=== PATIENT | male | born 1970 | race African-American/Black ===

== ENCOUNTER 2018-05-11 19:24 | Emergency (ER) | payer SELFPAY ==
[~2018-05-11] VITALS: Ht 180.3 cm; Wt 69.6 kg
[2018-05-11 19:59] VITALS: Ht 180.3 cm; Wt 69.6 kg
[2018-05-11 21:03] LABS: UA SPECIFIC GRAVITY >=1.030 (1.005-1.035); microscopic required? YES; urine erythrocyte NEGATIVE (NEGATIVE)
[2018-05-11 21:08] LABS: BASOPHIL % 0.2 % (0-2)
[2018-05-11 21:12] LABS: PLATELET COUNT 484 x10^3mcL (130-400); RED CELL DISTRIBUTION WIDTH 14.7 % (11.5-14.5)
[2018-05-11 21:14] LABS: CALCIUM 8.8 mg/dL (8.5-10.1); CARBON DIOXIDE 28.8 mmol/L (21-32); CHLORIDE SERUM 99 mmol/L (98-107); CREATININE SERUM 0.9 mg/dL (0.7-1.3); GFR1 > 60 mL/min; GLUCOSE SERUM 118 mg/dL (74-106); POTASSIUM SERUM 3.2 mmol/L (3.5-5.1); SODIUM SERUM 138 mmol/L (136-145)
[2018-05-11 21:28] LABS: ALBUMIN 2.9 g/dL (3.4-5.0); ALKALINE PHOSPHATASE 252 U/L (46-116); ALT/SGPT 28 U/L (16-63); AST/SGOT 37 U/L (15-37); FREE T4 1.32 ng/dL (0.76-1.46); LIPASE 433 IU/L (73-393); TOTAL PROTEIN, SERUM 7.7 g/dL (6.4-8.2)
[2018-05-11 22:40] VITALS: BP 126/86
== END 2018-05-11 22:40 | disposition home or self-care (01) ==
LOC: ED 19:24
PROVIDERS: Emergency Medicine
PROC: 3E033NZ Introduction of Analgesics, Hypnotics, Sedatives into Peripheral Vein, Percutaneous Approach (ICD-10-PCS; principal; 2018-05-11)
PROC: 3E033GC Introduction of Other Therapeutic Substance into Peripheral Vein, Percutaneous Approach (ICD-10-PCS; 2018-05-11)
PROC: BW21ZZZ Computerized Tomography (CT Scan) of Abdomen and Pelvis (ICD-10-PCS; 2018-05-11)
DX: R10.12 Left upper quadrant pain (principal); J02.9 Acute pharyngitis, unspecified; R11.10 Vomiting, unspecified; I10 Essential (primary) hypertension; E05.90 Thyrotoxicosis, unspecified without thyrotoxic crisis or storm; E05.00 Thyrotoxicosis with diffuse goiter without thyrotoxic crisis or storm
CPT/HCPCS: 84439; J1885; J2405; J7030